=== PATIENT | male | born 1960 | race Caucasian/White ===

== ENCOUNTER 2017-06-17 22:23 | Emergency (ER) | payer BC ==
[~2017-06-17] VITALS: Ht 177.8 cm; Wt 147.7 kg
[2017-06-17] MEDS ORDERED: EZET10TA (22:32)
[2017-06-17] MEDS ORDERED: LISINOPRIL-HCTZ (22:32)
[2017-06-17] MEDS ORDERED: NS 1,000 ML IV ONE (23:00)
[2017-06-17] MEDS ORDERED: OXYMETAZOLINE NASAL SPRAY (AFRIN) ONE (23:00)
[2017-06-17 23:19] LABS: BASO # 0.1 10^3/uL (0.0-0.2); BASO % 0.9 % (0.0-1.0); EOS # 0.3 10^3/uL (0.0-0.50); EOS % 3.2 % (0.0-3.0); IMMATURE GRANULOCYTE % 0.9 % (0-0); LYMPH # 2.7 10^3/uL (1.5-4.5); MEAN CORPUSCULAR HEMOGLOBIN 30.4 pg (27.0-33.0); MEAN CORPUSCULAR HGB CONC 32.7 g/dl (32.0-36.5); MONO # 0.8 10^3/uL (0.0-0.8); MONO % 10.3 % (0.0-5.0); NEUTROPHILS # 4.2 10^3/uL (1.8-7.7); NEUTROPHILS % 51.7 % (36.0-66.0); PLATELET COUNT, AUTOMATED 217 10^3/uL (150-450); WHITE BLOOD COUNT 8.1 10^3/uL (4.0-10.0)
[2017-06-17 23:32] LABS: INR 0.9
[2017-06-17 23:41] LABS: ANION GAP 8 MEQ/L (8-16); BLOOD UREA NITROGEN 20 MG/DL (7-18); CALCIUM LEVEL 8.8 MG/DL (8.5-10.1); CARBON DIOXIDE LEVEL 27 MEQ/L (21-32); CHLORIDE LEVEL 103 MEQ/L (98-107); CREATININE FOR GFR 1.13 MG/DL (0.70-1.30); GLOMERULAR FILTRATION RATE > 60.0 (>56); GLUCOSE, FASTING 156 MG/DL (70-105); POTASSIUM SERUM 3.4 MEQ/L (3.5-5.1); SODIUM LEVEL 138 MEQ/L (136-145)
[2017-06-18 00:52] VITALS: BP 146/78
[2017-06-19] MEDS ORDERED: DOXY100C37 PO (14:06)
[2017-06-19] MEDS ORDERED: SALISOL7 (14:07)
[2017-06-19] MEDS ORDERED: NEOSOIN TOP (14:08)
== END 2017-06-18 00:57 | disposition home or self-care (01) ==
LOC: M ED 22:23
DX: R04.0 Epistaxis (principal); Z87.891 Personal history of nicotine dependence

== ENCOUNTER 2017-06-19 01:29 | Emergency (ER) | payer BC ==
[~2017-06-19] VITALS: Ht 177.8 cm; Wt 148.0 kg
[~2017-06-19 01:29] MED LIST: EZET10TA; LISINOPRIL-HCTZ
[2017-06-19 01:43] VITALS: BP 144/80
[2017-06-19] MEDS ORDERED: SILVER NITRATE APPLICATOR TOP ONE (03:45)
[2017-06-19] MEDS ORDERED: COCAINE 4% TOP SOLN 4 ML VIAL TOP ONE (03:45)
[2017-06-19] MEDS ORDERED: DOXY100C37 PO (14:06)
[2017-06-19] MEDS ORDERED: SALISOL7 (14:07)
[2017-06-19] MEDS ORDERED: NEOSOIN TOP (14:08)
== END 2017-06-19 04:08 | disposition home or self-care (01) ==
LOC: M ED 01:29
DX: R04.0 Epistaxis (principal); I10 Essential (primary) hypertension; Z87.891 Personal history of nicotine dependence; Z88.0 Allergy status to penicillin; Z91.010 Allergy to peanuts

== ENCOUNTER 2017-06-19 10:38 | Emergency (ER) | payer BC ==
[~2017-06-19] VITALS: Ht 177.8 cm; Wt 147.4 kg
[2017-06-19 10:41] VITALS: BP 140/91
[2017-06-19] MEDS ORDERED: EPINEPHrine INJ 1 MG/ML 1ML AMP As Ordered ONE (13:16)
[2017-06-19 13:17] LABS: BASO # 0.1 10^3/uL (0.0-0.2); BASO % 0.9 % (0.0-1.0); EOS # 0.1 10^3/uL (0.0-0.50); IMMATURE GRANULOCYTE % 0.8 % (0-0); LYMPH # 1.5 10^3/uL (1.5-4.5); LYMPH % 16.9 % (24.0-44.0); MEAN CORPUSCULAR HEMOGLOBIN 30.7 pg (27.0-33.0); MEAN CORPUSCULAR HGB CONC 33.5 g/dl (32.0-36.5); MEAN CORPUSCULAR VOLUME 91.5 fl (80.0-96.0); MONO # 0.8 10^3/uL (0.0-0.8); NEUTROPHILS # 6.4 10^3/uL (1.8-7.7); NEUTROPHILS % 71.4 % (36.0-66.0); PLATELET COUNT, AUTOMATED 220 10^3/uL (150-450); RED CELL DISTRIBUTION WIDTH 13.1 % (11.5-14.5)
[2017-06-19] MEDS ORDERED: SILVER NITRATE APPLICATOR As Ordered ONE (13:17)
[2017-06-19 13:33] LABS: ANION GAP 9 MEQ/L (8-16); BLOOD UREA NITROGEN 15 MG/DL (7-18); CALCIUM LEVEL 9.1 MG/DL (8.5-10.1); CARBON DIOXIDE LEVEL 24 MEQ/L (21-32); CHLORIDE LEVEL 106 MEQ/L (98-107); CREATININE FOR GFR 1.02 MG/DL (0.70-1.30); GLOMERULAR FILTRATION RATE > 60.0 (>56); GLUCOSE, FASTING 100 MG/DL (70-105); POTASSIUM SERUM 3.9 MEQ/L (3.5-5.1); SODIUM LEVEL 139 MEQ/L (136-145)
[2017-06-19 13:35] LABS: INR 0.9
[2017-06-19] MEDS ORDERED: DOXY100C37 PO (14:06)
[2017-06-19] MEDS ORDERED: SALISOL7 (14:07)
[2017-06-19] MEDS ORDERED: NEOSOIN TOP (14:08)
[2017-06-19] MEDS ORDERED: EPINEPHrine 1MG/10ML SYRINGE 1.5IN XX STA (14:50)
[2017-06-19] MEDS ORDERED: LIDOCAINE W/EPINEPHRINE 1% 20ML VIAL SC ONE (15:00)
[2017-06-19] MEDS ORDERED: SILVER NITRATE APPLICATOR TOP ONE ×2 (15:00)
[2017-06-19] MEDS ORDERED: EPINEPHrine INJ 1 MG/ML 1ML AMP XX ONE (15:15)
--- NOTE | 2017-06-20 06:41 | ED PDOC ---
Post-Departure Follow-Up Addendum to physical exam dated 06/19/17: ENT: red bleeding from both nares. external ears: no lesions. Oropharynx:patent without lesions or drooling. Lungs: clear without adventitious sounds Cardiovascular: heart normal rate, regular rhythm. No edema. Abdomen: soft, nontender, nondistended Skin: warm, dry. CR <2sec. no tenting, no lesions. Neuro: Alert and oriented x4. Motor and sensory function intact cranial nerves and all 4 extremities. Gait normal. Psych: concerned appropriate to problem, very pleasant Procedures: topical oxymetazoline and lidocaine were applied to both nares via 4x4 sponge and nasal clip placed. Clip was removed after 10 min and bleeding continued from both nates. Patient blew his nose to expel clots and nasal speculum was used to examine nares. Active bleeding noted from R anterior septum. No source bleeding from L. Placement of Merocel nasal tampon was attempted R nare but resistance was encountered and pt. declined reattempt. ENT was calledand agreed to see pt. in ED. Rach Yanez PA-C Jun 20, 2017 06:41
== END 2017-06-19 15:10 | disposition home or self-care (01) ==
LOC: M ED 10:38
DX: R04.0 Epistaxis (principal); R03.0 Elevated blood-pressure reading, without diagnosis of hypertension; E78.5 Hyperlipidemia, unspecified; Z88.0 Allergy status to penicillin; Z91.010 Allergy to peanuts

== ENCOUNTER → 2017-11-24 | Outpatient (CLI) | payer BC | LOC: M SLEEP 19:44 | DX: G47.30 Sleep apnea, unspecified (principal) | CPT/HCPCS: 95810 ==

== ENCOUNTER → 2017-12-28 | Outpatient (CLI) | payer BC | LOC: M SLEEP 19:43 | DX: G47.33 Obstructive sleep apnea (adult) (pediatric) (principal) ==

== ENCOUNTER 2018-03-18 06:53 | Day surgery (SDC) | payer BC ==
[2018-03-18] MEDS ORDERED: LIDOCAINE 2% INJ 100 MG/5 ML SDV (FOR ANES.) As Ordered (07:06)
[2018-03-18] MEDS ORDERED: PROPOFOL 200 MG/20 ML VIAL As Ordered ×2 (07:07→07:58)
[2018-03-18] MEDS ORDERED: NS 1,000 ML IV (07:15)
== END 2018-03-18 08:35 | disposition home or self-care (01) ==
LOC: M OPP 06:53
DX: Z12.11 Encounter for screening for malignant neoplasm of colon (principal); Z86.010 Personal history of colon polyps; K63.5 Polyp of colon; I10 Essential (primary) hypertension; E78.00 Pure hypercholesterolemia, unspecified; N40.0 Benign prostatic hyperplasia without lower urinary tract symptoms; K82.9 Disease of gallbladder, unspecified; Z79.82 Long term (current) use of aspirin; Z79.899 Other long term (current) drug therapy; Z91.018 Allergy to other foods; Z88.0 Allergy status to penicillin; Z87.448 Personal history of other diseases of urinary system; Z80.1 Family history of malignant neoplasm of trachea, bronchus and lung
CPT/HCPCS: 45385

== ENCOUNTER → 2018-04-20 | Outpatient (CLI) | payer BC ==
[2018-04-21 11:25] LABS: PROSTATIC SPECIFIC AG MONITOR 4.29 NG/ML (< 4.0)
== END ==
LOC: M SMT 14:32
DX: N40.1 Benign prostatic hyperplasia with lower urinary tract symptoms (principal)
CPT/HCPCS: 84153

== ENCOUNTER → 2018-11-28 | Outpatient (CLI) | payer BC ==
[~2018-11-28] MED LIST changes: +ASPI81TA26 PO; +DOXY100C37 PO; -EZET10TA; +EZET10TA PO; +FLOM0.4C39 PO; +LISI10TA2 PO; +NEOSOIN2 TOP; +SALISOL7
[2018-11-30 10:14] LABS: PSA TOTAL 3.2 ng/mL (0.0-4.0)
== END ==
LOC: M SMT 08:25
PROVIDERS: ATTEND Nurse Practitioner
DX: N20.0 Calculus of kidney (principal)

== ENCOUNTER → 2019-05-22 | Outpatient (CLI) | payer BC ==
[~2019-05-22] MED LIST changes: -EZET10TA PO; +EZET10TA21 PO; +LISI10TA15 PO; -LISI10TA2 PO
== END ==
LOC: M SMT 11:13
PROVIDERS: ATTEND Nurse Practitioner
DX: N40.1 Benign prostatic hyperplasia with lower urinary tract symptoms (principal)

== ENCOUNTER 2020-08-02 19:08 | Inpatient (IN) | payer BC ==
[~2020-08-02] VITALS: Ht 180.3 cm; Wt 159.6 kg
[2020-08-02] MEDS ORDERED: dexameTHASONE 20MG/5ML VIAL (J1100 PER 1MG) As Ordered ONE (20:17)
[2020-08-02 20:50] LABS: BASO % 0.5 % (0.0-1.0); EOS # 0.1 10^3/uL (0.0-0.5); EOS % 2.1 % (0.0-3.0); HEMATOCRIT 46.5 % (42.0-52.0); LYMPH # 1.9 10^3/uL (1.5-5.0); LYMPH % 32.9 % (24.0-44.0); MEAN CORPUSCULAR HEMOGLOBIN 29.9 pg (27.0-33.0); MEAN CORPUSCULAR HGB CONC 32.3 g/dl (32.0-36.5); MEAN CORPUSCULAR VOLUME 92.6 fl (80.0-96.0); MONO % 17.5 % (0.0-5.0); NEUTROPHILS # 2.7 10^3/uL (1.5-8.5); NEUTROPHILS % 45.8 % (36.0-66.0); PLATELET COUNT, AUTOMATED 185 10^3/uL (150-450); RED BLOOD COUNT 5.02 10^6/uL (4.30-6.10); WHITE BLOOD COUNT 5.8 10^3/uL (4.0-10.0)
[2020-08-02 21:07] LABS: D-DIMER QUANT 705.88 ng/ml (<500)
--- NOTE | 2020-08-02 21:07 | REPVR ---
PROCEDURE INFORMATION: Exam: XR Chest, 1 View Exam date and time: 08/02/2020 7:30 PM Age: 59 years old Clinical indication: Cough; Additional info: Coronavirus workup TECHNIQUE: Imaging protocol: XR of the chest Views: 1 view. COMPARISON: No relevant prior studies available. FINDINGS: Lungs: Minimal right base atelectasis or scar. No focal infiltrates. Pleural space: Unremarkable. No pleural effusion. No pneumothorax. Heart/Mediastinum: The heart is within normal limits considering AP and lordotic projection. Bones/joints: Unremarkable. Soft tissues: There are generous overlying soft tissues. IMPRESSION: 1. Minimal right base atelectasis or scar. 2. Otherwise negative lordotic chest. Electronically signed by: Caleb Chamorro On 08/02/2020 21:08:09 PM
[2020-08-02 21:13] LABS: ALBUMIN 3.5 GM/DL (3.2-5.2); ALT/SGPT 76 U/L (12-78); BILIRUBIN,TOTAL 0.4 MG/DL (0.2-1.0); BLOOD UREA NITROGEN 20 MG/DL (7-18); CALCIUM LEVEL 8.6 MG/DL (8.8-10.2); CARBON DIOXIDE LEVEL 26 MEQ/L (21-32); CHLORIDE LEVEL 101 MEQ/L (98-107); CREATININE FOR GFR 1.35 MG/DL (0.70-1.30); GLOMERULAR FILTRATION RATE 57.4 (>49); GLUCOSE, FASTING 99 MG/DL (70-100); NT-PRO BNP 25 PG/ML (<125); POTASSIUM SERUM 4.3 MEQ/L (3.5-5.1); SODIUM LEVEL 133 MEQ/L (136-145); TOTAL PROTEIN 7.3 GM/DL (6.4-8.2); TROPONIN I < 0.02 NG/ML (< 0.10)
--- NOTE | 2020-08-02 21:24 | HPEPDOC ---
[facility] Medical History & Physical Date of Admission Aug 02, 2020 Date of Service: Aug 02, 2020 Primary Care Physician: A Other Provider Kalpesh LITTLE Attending Physician: ROSALIO CALVERT MD History and Physical TIME OF SERVICE: 855pm CHIEF COMPLAINT: URI symptoms HISTORY OF PRESENT ILLNESS: This 59 yr old male was diagnosed with COVID 19 based on a swab done on Jul 29; today he presented w c/o worsening cough, sore throat, chest congestion and dyspnea with activity. Denies n/v/d. The patient was noted to desat from 95% to 87% while ambulating on room air. REVIEW OF SYSTEMS: see HPI PAST MEDICAL/ SURGICAL HISTORY: Chronic HTN HECTOR 16 cm H2O Class 3 obesity Resection of adenomatous colonic polyp Right knee surgery SOCIAL HISTORY: Former smoker FAMILY HISTORY: n/a ALLERGIES: Please see below. HOME MEDICATIONS: Please see below. PHYSICAL EXAMINATION: Vital Signs Date Time Temp Pulse Resp B/P (MAP) Pulse Ox O2 Delivery O2 Flow Rate FiO2 08/02/20 19:09 97.5 94 20 132/65 (87) 93 Room Air GENERAL APPEARANCE: obese / well developed / NAD HEENT: MMM &P CARDIOVASCULAR: RRR/NMRG/ radial pulses diminished LUNGS: coughing / normal air entry bilaterally / expiratory rhochi ABDOMEN: contour obese / soft & NT on palpation MUSCULOSKELETAL: NCAT / DEVYN x 4 NEUROLOGICAL: speech not dysarthric PSYCHIATRIC: A&Ox 3 /able to understand and follow all commands LABORATORY DATA: 08/02/20 20:08 08/02/20 20:09 08/02/20 20:08: D-Dimer, Quantitative 705.88H, Anion Gap 6L, Glomerular Filtration Rate 57.4, Calcium Level 8.6L, Total Bilirubin 0.4, Aspartate Amino Transf (AST/SGOT) 49H, Alanine Aminotransferase (ALT/SGPT) 76, Alkaline Phosphatase 51, Troponin I < 0.02, LS-Lyo-X-Type Natriuretic Peptide 25, Total Protein 7.3, Albumin 3.5, Albumin/Globulin Ratio 0.9 08/02/20 20:09: Immature Granulocyte % (Auto) 1.2, Neutrophils (%) (Auto) 45.8, Lymphocytes (%) (Auto) 32.9, Monocytes (%) (Auto) 17.5H, Eosinophils (%) (Auto) 2.1, Basophils (%) (Auto) 0.5, Neutrophils # (Auto) 2.7, Lymphocytes # (Auto) 1.9, Monocytes # (Auto) 1.0H, Eosinophils # (Auto) 0.1, Basophils # (Auto) 0.0, Nucleated Red Blood Cells % (auto) 0.0, Lactic Acid Level 1.9 IMAGING: Chest xray IMPRESSION: 1. Minimal right base atelectasis or scar. 2. Otherwise negative lordotic chest. CTA chest IMPRESSION: 1. Trace bilateral pleural effusions with minimal scattered ground-glass infiltrates consistent with pneumonia. 2. Otherwise negative CTA chest. No pulmonary embolism is identified. MICROBIOLOGY: + COVID 19 / Blood cx pending ASSESSMENT: is a 59 yr old w a hx of HTN, HECTOR and class 3 obesity who presented w c/o cough, sore throat, chest congestion and worsening dyspnea after being diagnosed w COVID 19 on Jul 29and will be admitted for management hypoxemia 2/2 COVID and FREDDY. PLAN: 1. Hypoxemia 2/2 COVID-19 His symptoms are mostly URI. He doesnt have GI symptoms Reason for admission: qCSI score = 5 points based on desat to 87% while ambulating Plan: admit to medical floor / contact & air borne precautions / in 12 H f/u repeat plts (if low indicates bad prognosis), CRP (if high indicates bad prognosis), troponins, INR, BMP, fibrinogen, INR, D-dimer, PT, PTT (if patient has DIC indicates bad prognosis), ferritin, LDH, procalcitonin (if elevated will help rule out bacterial PNA), troponins / supplemental O2 up to with target O2 sats between 92-95% / f/u procalcitonin to confirm absence of superimposed bacterial PNA / will not start abx bc there is no documented fever, leukcytosis or elevation in neutrophils / will not start high dose lovenox bc d-dimer is <4000 / will start dexamethasone & renally dosed remdesivir bc of of hypoxemia 2. Acute Renal Failure Cr increased from 1.02 to 1.35 Plan: monitor UOP / IVF / f/u UA w microscopy, renal panel, CK, Ulytes for FENa or FEUrea / renal US / hold Lisinopril and HTCZ 3. Chronic HTN Plan: start amlodipine 5mg daily while Lisinopril/HTCZ are on hold 4.HECTOR Plan: CPAP 16cm H2O 5. Class 3 obesity BMI 49.5 complicates care Since the patients BMI >40 he is a candidate for bariatric surgery Plan: f/u A1C / the patient can f/u w his or her PCP for sleep apnea screening, perfume and toilet water maker consult, to discuss staring Saxenda as an adjunct to exercise which is indicated in patients with a BMI >27 with co-existing DM, HTN or dyslipidemia to help with weight control & referral to a Bariatric Surgeon / recommend cardiovascular exercise for 40 min 4-5 days a week DVT Px w lovenox and ASA Dispo: home after at least 2 midnights stay Home Medications Scheduled Aspirin (Aspirin EC) 81 Mg Tab, 81 MG PO DAILY Ezetimibe (Ezetimibe) 10 Mg Tab, 10 MG PO DAILY Lisinopril/Hydrochlorothiazide (Lisinopril-Hctz 10-12.5 mg Tab) 1 Tab Tab, 1 TAB PO DAILY Tamsulosin HCl (Flomax) 0.4 Mg Cap, 0.4 MG PO DAILY Allergies Coded Allergies: NUTS (Verified Allergy, Severe, ANAPHYLAXIS, 08/02/20) Penicillins (Unverified Allergy, Unknown, 08/02/20) A-FIB/CHADSVASC A-FIB History Current/History of A-Fib/PAF?: No Current PO Anticoag Therapy: No ROSALIO CALVERT MD Aug 02, 2020 21:24
[2020-08-02] MEDS ORDERED: MAALOX 30 ML SUSP *UDC PO PRN (21:30)
[2020-08-02] MEDS ORDERED: MOM 30ML SUSPENSION UDC PO PRN (21:30)
[2020-08-02] MEDS ORDERED: ACETAMINOPHEN TAB 650MG DOSE (2X325MG) PO PRN (21:30)
[2020-08-02] MEDS ORDERED: NS 1,000 ML IV ONE (21:30)
[2020-08-02] MEDS ORDERED: ISOVUE-370 76% 100ML VIAL As Ordered ONE (21:38)
[2020-08-02 22:01] LABS: PHOSPHORUS LEVEL 3.3 MG/DL (2.5-4.9)
--- NOTE | 2020-08-02 22:25 | REPVR ---
PROCEDURE INFORMATION: Exam: CT Angiography Chest With Contrast Exam date and time: 08/02/2020 9:51 PM Age: 59 years old Clinical indication: Abnormal findings; Abnormal diagnostic tests; Elevated d-dimer; Shortness of breath; Additional info: SOB, hypoxia, mildly elev d-dimer TECHNIQUE: Imaging protocol: Computed tomographic angiography of the chest with intravenous contrast. 3D rendering (Not supervised by radiologist): MIP and/or 3D reconstructed images were created by the technologist. Radiation optimization: All CT scans at this facility use at least one of these dose optimization techniques: automated exposure control; mA and/or kV adjustment per patient size (includes targeted exams where dose is matched to clinical indication); or iterative reconstruction. Contrast material: ISOVUE 370; Contrast volume: 100 ml; Contrast route: INTRAVENOUS (IV); COMPARISON: CR PORTABLE CHEST X-RAY 08/02/2020 8:14 PM FINDINGS: Pulmonary arteries: The main pulmonary artery measures 30 mm. No pulmonary embolism is identified. Aorta: The ascending thoracic aorta measures 30 mm. Lungs: Minimal scattered bilateral pulmonary infiltrates with minimal bilateral lower lobe fibro-atelectatic change. Pleural space: Trace bilateral pleural effusions. Heart: Unremarkable. No cardiomegaly. No pericardial effusion. Lymph nodes: Unremarkable. No enlarged lymph nodes. Liver: Probable hepatic cyst in the anterior dome measuring 14 mm with a Hounsfield measurement of 2. Bones/joints: Unremarkable. No acute fracture. Soft tissues: Unremarkable. IMPRESSION: 1. Trace bilateral pleural effusions with minimal scattered ground-glass infiltrates consistent with pneumonia. 2. Otherwise negative CTA chest. No pulmonary embolism is identified. Electronically signed by: Caleb Chamorro On 08/02/2020 22:25:22 PM
[2020-08-02 23:04] LABS: INR 0.93; PROTHROMBIN TIME 12.7 SECONDS (12.5-14.3)
[2020-08-02 23:05] LABS: PARTIAL THROMBOPLASTIN TIME 37.4 SECONDS (24.2-38.5)
[2020-08-02] MEDS ORDERED: SODIUM CHLORIDE 0.9% INJ 10 ML SYR IV ONE (23:30)
[2020-08-02 23:43] VITALS: BP 129/76
[2020-08-02 23:55] LABS: C REACTIVE PROTEIN QUANTITATIV 1.76 MG/DL (0.00-0.30); CK-MB VALUE MASS 2.1 NG/ML (<3.6); CPK CREATINE PHOSPHOKINASE 226 U/L (39-308); FERRITIN 422 NG/ML (26-388); LDH LACTATE DEHYDROGENASE 206 U/L (87-241); MB/CK RELATIVE INDEX 0.93 (< OR =4); TRIGLYCERIDES LEVEL 114 MG/DL (<150)
[2020-08-03] MEDS: ENOXAPARIN 40MG/0.4ML SYRINGE (J1650 PER 10MG) SC SCH ×2 (00:19→21:32)
[2020-08-03] MEDS: NS 1,000 ML IV SCH ×2 (00:20→17:35)
[2020-08-03 04:00] VITALS: BP 110/64
[2020-08-03 07:06] LABS: BASO % 0.3 % (0.0-1.0); HEMATOCRIT 45.6 % (42.0-52.0); HEMOGLOBIN 14.8 g/dl (13.5-17.5); LYMPH # 0.8 10^3/uL (1.5-5.0); LYMPH % 26.5 % (24.0-44.0); MEAN CORPUSCULAR HEMOGLOBIN 30.3 pg (27.0-33.0); MEAN CORPUSCULAR HGB CONC 32.5 g/dl (32.0-36.5); MEAN CORPUSCULAR VOLUME 93.4 fl (80.0-96.0); MONO # 0.2 10^3/uL (0.0-0.8); NEUTROPHILS # 1.9 10^3/uL (1.5-8.5); NEUTROPHILS % 64.5 % (36.0-66.0); PLATELET COUNT, AUTOMATED 167 10^3/uL (150-450); RED BLOOD COUNT 4.88 10^6/uL (4.30-6.10)
[2020-08-03 07:14] LABS: APPEARANCE, URINE CLEAR (CLEAR); BACTERIA, URINE AUTO NEGATIVE (NEGATIVE); BILIRUBIN, URINE AUTO NEGATIVE (NEGATIVE); BLOOD, URINE BLOOD NEGATIVE (NEGATIVE); COLOR, URINE YELLOW (YELLOW); GLUCOSE, URINE (UA) AUTO NEGATIVE (NEGATIVE); KETONE, URINE AUTO NEGATIVE (NEGATIVE); LEUKOCYTE ESTERASE, URINE AUTO NEGATIVE (NEGATIVE); NITRITE, URINE AUTO NEGATIVE (NEGATIVE); PROTEIN, URINE AUTO NEGATIVE (NEGATIVE); RBC, URINE AUTO 1 /HPF (0-3); SPECIFIC GRAVITY URINE AUTO 1.017 (1.002-1.035); SQUAMOUS EPITHELIAL CELL UR AU 0 /HPF (0-6); UROBILINOGEN, URINE AUTO 0.2 mg/dL (0.0-2.0); WBC, URINE AUTO 0 /HPF (0-3)
[2020-08-03 07:21] LABS: INR 0.9; PROTHROMBIN TIME 12.3 SECONDS (12.5-14.3)
[2020-08-03 07:22] LABS: PARTIAL THROMBOPLASTIN TIME 38.3 SECONDS (24.2-38.5)
[2020-08-03 07:24] LABS: HEMOGLOBIN A1c 5.2 %
[2020-08-03 07:25] LABS: D-DIMER QUANT 674.96 ng/ml (<500)
[2020-08-03 07:38] LABS: CREATININE,RANDOM URINE 50.4 MG/DL; TOTAL PROTEIN,RANDOM URINE 7.2 MG/DL (0.0-12.0)
[2020-08-03 07:46] LABS: C REACTIVE PROTEIN QUANTITATIV 1.76 MG/DL (0.00-0.30); FERRITIN 386 NG/ML (26-388); LDH LACTATE DEHYDROGENASE 196 U/L (87-241); NT-PRO BNP 27 PG/ML (<125); TRIGLYCERIDES LEVEL 62 MG/DL (<150); TROPONIN I < 0.02 NG/ML (< 0.10)
[2020-08-03 08:00] VITALS: BP 148/85
--- NOTE | 2020-08-03 08:44 | REP ---
INDICATION: FREDDY COMPARISON: 09/19/2008 TECHNIQUE: Real time cho scale ultrasound examination using curved array transducer. FINDINGS: The kidneys are normal in reniform shape with mildly increased parenchymal echotexture and subtle suggested renovascular calcifications. No hydronephrosis, nephrolithiasis or renal mass lesion appreciated. Right kidney measures 12.0 x 6.0 x 6.2 cm and includes 2.9 x 2.4 x 2.5 cm upper pole cyst. Left kidney measures 12.7 x 5.6 x 7.9 cm. Bladder is under distended but grossly normal in appearance. IMPRESSION: 1. Evidence for chronic medical renal disease without hydronephrosis. 2. A 2.9 cm right renal cyst is identified. <Electronically signed by Riccardo Small > 08/03/20 0805
[2020-08-03] MEDS: EZETIMIBE 10 MG TAB (ZETIA) PO SCH (09:55)
[2020-08-03] MEDS: TAMSULOSIN 0.4 MG CAP PO SCH (09:55)
[2020-08-03] MEDS: ASPIRIN 81 MG ENTERIC TAB PO SCH (09:55)
[2020-08-03] MEDS: dexameTHASONE 4 MG/ML 1ML VIAL (J1100 PER 1MG) IV SCH (09:55)
[2020-08-03] MEDS: amLODIPine 5 MG TAB PO SCH (09:56)
--- NOTE | 2020-08-03 14:43 | IPNPDOC ---
Text Note Date of Service The patient was seen on 08/03/20. NOTE SUBJECTIVE: -No acute events overnight PHYSICAL EXAMINATION: Vital Signs: see below. HDS, on room air GENERAL APPEARANCE: NAD HEENT: MMM, NCAT, EOMI, no injection, anicteric CARDIOVASCULAR: RRR, no mrg LUNGS: Normal air entry bilaterally, however coughing and not speaking in full sentences, has some pauses, no crackles, some diffuse rhonchi, no wheezing ABDOMEN: Obese, normoactive sounds, soft, NTND NEUROLOGICAL: speech not dysarthric, CN3-12 intact, non focal exam PSYCHIATRIC: A&Ox 3 LABORATORY DATA: reviewed ASSESSMENT: 59 yr old w a hx of HTN, HECTOR and class 3 obesity who presented w c/o cough, sore throat, chest congestion and worsening dyspnea after being diagnosed w COVID 19 on Jul 29 and will be admitted for management hypoxemia 2/2 COVID and FREDDY. PLAN: Hypoxemia 2/2 COVID-19 His symptoms are mostly URI. He doesnt have GI symptoms Reason for admission: qCSI score = 5 points based on desat to 87% while ambulating -f/u strict covid panel labs -supplemental O2 to target O2 sats between 92-95% -f/u procalcitonin to confirm absence of superimposed bacterial PNA -will not start abx bc there is no documented fever, leukcytosis or elevation in neutrophils -will not start high dose lovenox bc d-dimer is <4000 -continue dexamethasone & renally dosed remdesivir bc of presentation exertional hypoxemia -tersalon perls BID for cough 2. Acute Renal Failure: Cr increased from 1.02 to 1.35, likely prerenal -s/p IVF -hold Lisinopril and HTCZ -daily BMP 3. Chronic HTN -continue amlodipine 5mg daily while Lisinopril/HTCZ are on hold 4.HECTOR -CPAP 16cm H2O 5. Class 3 obesity BMI 49.5 complicates care Since the patients BMI >40 he is a candidate for bariatric surgery Plan: f/u A1C / the patient can f/u w his or her PCP for sleep apnea screening, personal coach consult, to discuss staring Saxenda as an adjunct to exercise which is indicated in patients with a BMI >27 with co-existing DM, HTN or dyslipidemia to help with weight control & referral to a Bariatric Surgeon / recommend cardiovascular exercise for 40 min 4-5 days a week DVT Px w lovenox and ASA Dispo: home after at least 2 midnights stay VS,Fishbone, I+O VS, Fishbone, I+O Laboratory Tests 08/02/20 20:08 08/02/20 20:09 08/03/20 05:52 Vital Signs Date Time Temp Pulse Resp B/P (MAP) Pulse Ox O2 Delivery O2 Flow Rate FiO2 08/03/20 09:56 91 148/85 08/03/20 08:00 95.4 22 94 Room Air I&O- Last 24 Hours up to 6 AM 08/03/20 06:00 Intake Total 1390 ml Output Total 1200 ml Balance 190 ml VERONICA ANTONY MD Aug 03, 2020 11:16
[2020-08-03] MEDS: BENZONATATE 100 MG CAP PO SCH ×2 (17:35→21:31)
--- NOTE | 2020-08-03 18:16 | ECGEPIP ---
[facility] - ED Test Date: 2020-08-02 Pat Name: ADRIA JOHNSON Department: Room: [place] [address] Gender: Male Claims Sorter: yeison : 1960 Requested By: GIORGIO LITTLE Order Number: [id number] Reading MD: Kelsey Montemayor Measurements Intervals Hasty Rate: 84 P: 51 DC: 171 QRS: 12 QRSD: 97 T: 29 QT: 349 QTc: 413 Interpretive Statements SINUS RHYTHM No prior Electronically Signed on 08-03-2020 18:15:35 EST by Kelsey Montemayor
[2020-08-03 19:54] VITALS: BP 114/58
[2020-08-03] MEDS: SODIUM CHLORIDE 0.9% INJ 10 ML SYR IV SCH (22:38)
[2020-08-04] VITALS: O2SAT 92
[2020-08-04] MEDS: NS 1,000 ML IV SCH (02:56)
[2020-08-04 04:00] VITALS: BP_SYST 109; BP_SYST 120; BP_DIAS 56; BP_DIAS 67; O2SAT 92
[2020-08-04 08:00] VITALS: O2SAT 96
[2020-08-04 08:57] LABS: HEMATOCRIT 43.1 % (42.0-52.0); MEAN CORPUSCULAR HEMOGLOBIN 30.4 pg (27.0-33.0); MEAN CORPUSCULAR HGB CONC 32.5 g/dl (32.0-36.5); MEAN CORPUSCULAR VOLUME 93.7 fl (80.0-96.0); PLATELET COUNT, AUTOMATED 184 10^3/uL (150-450); WHITE BLOOD COUNT 6.4 10^3/uL (4.0-10.0)
[2020-08-04 09:21] LABS: BLOOD UREA NITROGEN 18 MG/DL (7-18); CALCIUM LEVEL 7.9 MG/DL (8.8-10.2); CARBON DIOXIDE LEVEL 23 MEQ/L (21-32); CHLORIDE LEVEL 105 MEQ/L (98-107); CREATININE FOR GFR 0.92 MG/DL (0.70-1.30); GLOMERULAR FILTRATION RATE > 60.0 (>49); GLUCOSE, FASTING 97 MG/DL (70-100); POTASSIUM SERUM 4.3 MEQ/L (3.5-5.1); SODIUM LEVEL 136 MEQ/L (136-145)
[2020-08-04] MEDS: ASPIRIN 81 MG ENTERIC TAB PO SCH (09:57)
[2020-08-04] MEDS: BENZONATATE 100 MG CAP PO SCH ×3 (09:57→22:11)
[2020-08-04] MEDS: TAMSULOSIN 0.4 MG CAP PO SCH (09:57)
[2020-08-04] MEDS: EZETIMIBE 10 MG TAB (ZETIA) PO SCH (09:57)
[2020-08-04] MEDS: dexameTHASONE 4 MG/ML 1ML VIAL (J1100 PER 1MG) IV SCH (09:58)
[2020-08-04] MEDS: amLODIPine 5 MG TAB PO SCH (09:59)
[2020-08-04 12:00] VITALS: BP 126/70; O2SAT 95
--- NOTE | 2020-08-04 15:55 | IPNPDOC ---
Text Note Date of Service The patient was seen on 08/04/20. NOTE SUBJECTIVE: -No acute events overnight PHYSICAL EXAMINATION: Vital Signs: see below. HDS, on room air GENERAL APPEARANCE: NAD HEENT: MMM, NCAT, EOMI, no injection, anicteric CARDIOVASCULAR: RRR, no mrg LUNGS: Normal air entry bilaterally ABDOMEN: Obese, normoactive sounds, soft, NTND NEUROLOGICAL: speech not dysarthric, CN3-12 intact, non focal exam PSYCHIATRIC: A&Ox 3 LABORATORY DATA: reviewed ASSESSMENT: 59 yr old w a hx of HTN, HECTOR and class 3 obesity who presented w c/o cough, sore throat, chest congestion and worsening dyspnea after being diagnosed w COVID 19 on Jul 29 and will be admitted for management hypoxemia 2/2 COVID and FREDDY. PLAN: Hypoxemia 2/2 COVID-19 His symptoms are mostly URI. He doesnt have GI symptoms Reason for admission: qCSI score = 5 points based on desat to 87% while ambulating -f/u strict covid panel labs -supplemental O2 to target O2 sats between 92-95% -f/u procalcitonin to confirm absence of superimposed bacterial PNA -will not start abx bc there is no documented fever, leukocytosis or elevation in neutrophils -will not start high dose lovenox bc d-dimer is <4000 -continue dexamethasone & renally dosed remdesivir bc of presentation exertional hypoxemia, day 2 -tersalon perls BID for cough 2. Acute Renal Failure: Cr increased from 1.02 to 1.35, likely prerenal, resolved. -s/p IVF -hold Lisinopril and HTCZ -daily BMP 3. Chronic HTN -continue amlodipine 5mg daily while Lisinopril/HTCZ are on hold 4.HECTOR -CPAP 16cm H2O 5. Class 3 obesity BMI 49.5 complicates care Since the patients BMI >40 he is a candidate for bariatric surgery Plan: f/u A1C / the patient can f/u w his or her PCP for sleep apnea screening, drill foreman consult, to discuss staring Saxenda as an adjunct to exercise which is indicated in patients with a BMI >27 with co-existing DM, HTN or dyslipidemia to help with weight control & referral to a Bariatric Surgeon / recommend cardiovascular exercise for 40 min 4-5 days a week DVT Px w lovenox and ASA Dispo: home after at least 2 midnights stay VS,Fishbone, I+O VS, Fishbone, I+O Laboratory Tests 08/04/20 08:27 Vital Signs Date Time Temp Pulse Resp B/P (MAP) Pulse Ox O2 Delivery O2 Flow Rate FiO2 08/04/20 12:00 97.6 64 18 126/70 (88) 95 Room Air I&O- Last 24 Hours up to 6 AM 08/04/20 06:00 Intake Total 2510 ml Output Total 875 ml Balance 1635 ml VERONICA ANTONY MD Aug 04, 2020 15:54
[2020-08-04 16:00] VITALS: O2SAT 94
[2020-08-04 20:00] VITALS: BP 138/88
[2020-08-04] MEDS: ENOXAPARIN 40MG/0.4ML SYRINGE (J1650 PER 10MG) SC SCH (22:12)
[2020-08-04] MEDS: SODIUM CHLORIDE 0.9% INJ 10 ML SYR IV SCH (22:30)
[2020-08-05 04:00] VITALS: BP 121/63; O2SAT 94
[2020-08-05 07:52] LABS: BASO % 0.1 % (0.0-1.0); LYMPH # 1.5 10^3/uL (1.5-5.0); LYMPH % 21.9 % (24.0-44.0); MEAN CORPUSCULAR HEMOGLOBIN 30.4 pg (27.0-33.0); MEAN CORPUSCULAR HGB CONC 32.6 g/dl (32.0-36.5); MEAN CORPUSCULAR VOLUME 93.3 fl (80.0-96.0); MONO # 0.7 10^3/uL (0.0-0.8); NEUTROPHILS # 4.6 10^3/uL (1.5-8.5); PLATELET COUNT, AUTOMATED 177 10^3/uL (150-450); RED BLOOD COUNT 4.61 10^6/uL (4.30-6.10); WHITE BLOOD COUNT 6.9 10^3/uL (4.0-10.0)
[2020-08-05 08:11] LABS: INR 1.05; PROTHROMBIN TIME 13.9 SECONDS (12.5-14.3)
[2020-08-05 08:12] LABS: PARTIAL THROMBOPLASTIN TIME 34.3 SECONDS (24.2-38.5)
[2020-08-05 08:20] LABS: ALBUMIN 3.3 GM/DL (3.2-5.2); ALT/SGPT 68 U/L (12-78); BILIRUBIN,DIRECT 0.2 MG/DL (0.0-0.2); BILIRUBIN,TOTAL 0.4 MG/DL (0.2-1.0); BLOOD UREA NITROGEN 18 MG/DL (7-18); CALCIUM LEVEL 8.4 MG/DL (8.8-10.2); CARBON DIOXIDE LEVEL 27 MEQ/L (21-32); CHLORIDE LEVEL 105 MEQ/L (98-107); CREATININE FOR GFR 1.04 MG/DL (0.70-1.30); FERRITIN 347 NG/ML (26-388); GLOMERULAR FILTRATION RATE > 60.0 (>49); GLUCOSE, FASTING 87 MG/DL (70-100); MAGNESIUM LEVEL 2.3 MG/DL (1.8-2.4); NT-PRO BNP 218 PG/ML (<125); POTASSIUM SERUM 4.1 MEQ/L (3.5-5.1); SODIUM LEVEL 138 MEQ/L (136-145); TOTAL PROTEIN 6.6 GM/DL (6.4-8.2); TROPONIN I < 0.02 NG/ML (< 0.10)
[2020-08-05] MEDS ORDERED: PREVNAR 13 VACCINE SYRINGE IM ONE (09:00)
[2020-08-05] MEDS ORDERED: FLUBLOK(EGG FREE)(QUAD)INFLUENZA VACC 0.5ML SYRINGE 18YRS & OLDER IM ONE (09:00)
[2020-08-05] MEDS: dexameTHASONE 4 MG/ML 1ML VIAL (J1100 PER 1MG) IV SCH (09:47)
[2020-08-05] MEDS: ASPIRIN 81 MG ENTERIC TAB PO SCH (09:47)
[2020-08-05] MEDS: EZETIMIBE 10 MG TAB (ZETIA) PO SCH (09:47)
[2020-08-05] MEDS: BENZONATATE 100 MG CAP PO SCH (09:48)
[2020-08-05] MEDS: TAMSULOSIN 0.4 MG CAP PO SCH (09:48)
[2020-08-05 09:52] VITALS: BP 112/63
[2020-08-05] MEDS: amLODIPine 5 MG TAB PO SCH (09:52)
[2020-08-05 09:59] VITALS: BP 112/63
[2020-08-05 10:27] LABS: HEPATITIS B SURFACE ANTIGEN NEGATIVE (NEGATIVE)
[2020-08-05 10:54] LABS: HIV 1&2 SCREEN CENTAUR NEGATIVE (NEGATIVE)
[2020-08-05] MEDS ORDERED: DEXA6TAB PO (12:07)
[2020-08-05] MEDS ORDERED: DOXY-350 PO (12:07)
--- NOTE | 2020-08-05 20:07 | DS.PDOC ---
Discharge Summary General Date of Admission Aug 02, 2020 at 21:25 Date of Discharge Wednesday, August 05, 2020 Attending Physician: SAMREEN CATES MD Discharge Summary PROCEDURES PERFORMED DURING STAY: None ADMITTING DIAGNOSES: Hypoxemia secondary to COVID-19 pneumonia Acute renal failure Chronic hypertension Obstructive sleep apnea Class III obesity Former smoker DISCHARGE DIAGNOSIS: COVID-19 pneumonia Acute renal failure of prerenal origin, resolved Chronic hypertension Obstructive sleep apnea Class III obesity Former smoker COMPLICATIONS/CHIEF COMPLAINT: Covid 19. HISTORY OF PRESENT ILLNESS: Kalpesh is a 59yo male with notable past medical history of obstructive sleep apnea on home CPAP, chronic hypertension, class III obesity, who presented to the emergency department on the evening of 08/02/2020 after being diagnosed with the Covid 19 virus via a swab done on July 29 and experiencing sore throat, chest congestion, worsening cough, and dyspnea on exertion. In the emergency department. He denied any associated nausea, vomiting or diarrhea. During the emergency department examination, he was noted to have desaturations and his oxygen from 95-87% while ambulating on room air. He was subsequently admitted under the care of the hospitalist service for primary observation, monitoring of his respiratory/oxygenation status in the setting of hypoxemia from Covid 19 infection. HOSPITAL COURSE: After admission, it was deemed that his symptoms were more of an upper respiratory infection origin and not associated with GI symptoms. Based on the fact that he desaturated to 87% oxygen while ambulating in the setting of a positive Covid 19, diagnosis, he was admitted to the floor with contact and airborne precautions with 12 hour repeat follow-up labs for platelets, CRP, troponins, coagulation studies, BMP, fibrinogen, and d-dimer. Supplemental oxygen was afforded to him with a target oxygen titration of 92-95%. Lovenox weight based/high dosing was deferred due to the fact his d-dimer was under 4000. He was started on dexamethasone and renally dose return to severe because of the hypoxemia. In addition, he was found to have acute renal failure upon presentation with a creatinine of 1.35 in the setting of a baseline around 1 (FREDDY is defined as at l east a 0.3 increase in sCr from baseline). He was given IV fluids with monitoring of his urine output and follow-up renal panel to monitor kidney function was ordered as well as urine electrolytes to calculate the fractional excretion of sodium and urea. A renal ultrasound was also ordered in his home lisinopril, hydrochlorothiazide was held in the setting of the FREDDY. He was placed on Lovenox for DVT prophylaxis. On 08/05, roughly 2.5 days after his admission, he was doing very well from respiratory standpoint with saturations of 93-94% on room air. He was no longer tachypneic and was not using accessory muscles to breathe nor desaturated on a 6 minute walk test. There was also a resolution of his acute renal failure as his creatinine came back down to baseline after receiving the IV fluids and holding his home blood pressure and diuretic medications. Upon completion of the successful. 6 minute walk test without significant hypoxemia and a benign exam, he was subsequently discharged home on 08/05/20 and given a 2 mg daily, oral dexamethasone prescription for 4 more days as well as a 5 day prescription for doxycycline to cover for any superimposed infections. DISCHARGE MEDICATIONS: Please see below. ALLERGIES: Please see below. PHYSICAL EXAMINATION ON DISCHARGE: VITAL SIGNS: Please see below. GENERAL APPEARANCE: NAD HEENT: MMM, NCAT, EOMI, no injection, anicteric CARDIOVASCULAR: RRR, no mrg LUNGS: Clear to auscultation bilaterally with no adventitious breath sounds appreciated. Normal air entry bilaterally with symmetric chest expansion. No accessory muscle use. Speaking full sentences. ABDOMEN: Obese, normoactive sounds, soft, NTND NEUROLOGICAL: speech not dysarthric, CN3-12 intact, non focal exam PSYCHIATRIC: A&Ox 3 LABORATORY DATA: Please see below. IMAGING: Chest xray, 08/02/2020 IMPRESSION: 1. Minimal right base atelectasis or scar. 2. Otherwise negative lordotic chest. CTA chest, 08/02/2020 IMPRESSION: 1. Trace bilateral pleural effusions with minimal scattered ground- glass infiltrates consistent with pneumonia. 2. Otherwise negative CTA chest. No pulmonary embolism is identified. Renal Ultrasound, 08/02/2020 IMPRESSION: 1. Evidence for chronic medical renal disease without hydronephrosis. 2. A 2.9 cm right renal cyst is identified. PROGNOSIS: Good ACTIVITY: As tolerated DIET: 2 g sodium/sodium restricted diet DISPOSITION: 01 Home, Self-Care. DISCHARGE INSTRUCTIONS & ITEMS TO FOLLOWUP ON ON OUTPATIENT: -Follow-up with your primary care physician within 7 days -Take 2 mg Dexamethasone daily for the next 4 days -Take 100 mg Doxycycline every 12 hours/two times per day for 5 days to cover for risk of superimposed infection -Return to ED/seek immediate medical care should presenting symptoms return and/or worsen DISCHARGE CONDITION: Stable TIME SPENT ON DISCHARGE: 37 minutes Vital Signs/I&Os Vital Signs Date Time Temp Pulse Resp B/P (MAP) Pulse Ox O2 Delivery O2 Flow Rate FiO2 08/05/20 09:59 97.5 64 18 112/63 (79) 93 Room Air I&O- Last 24 Hours up to 6 AM 08/05/20 06:00 Intake Total 1410 ml Output Total 1435 ml Balance -25 ml Laboratory Data Labs 24H Laboratory Tests 2 08/05/20 07:24: Immature Granulocyte % (Auto) 1.0, Neutrophils (%) (Auto) 67.0H, Lymphocytes (%) (Auto) 21.9L, Monocytes (%) (Auto) 10.0H, Eosinophils (%) (Auto) 0.0, Basophils (%) (Auto) 0.1, Neutrophils # (Auto) 4.6, Lymphocytes # (Auto) 1.5, Monocytes # (Auto) 0.7, Eosinophils # (Auto) 0.0, Basophils # (Auto) 0.0, Nucleated Red Blood Cells % (auto) 0.0, Prothrombin Time 13.9, Prothromb Time International Ratio 1.05, Activated Partial Thromboplast Time 34.3, Fibrinogen 348, Anion Gap 6L, Glomerular Filtration Rate > 60.0, Calcium Level 8.4L, Magnesium Level 2.3, Ferritin 347, Total Bilirubin 0.4, Direct Bilirubin 0.2, Aspartate Amino Transf (AST/SGOT) 42H, Alanine Aminotransferase (ALT/SGPT) 68, Alkaline Phosphatase 38L, Troponin I < 0.02, CR-Rxk-L-Type Natriuretic Peptide 218H, Total Protein 6.6, Albumin 3.3, Albumin/Globulin Ratio 1.0, Procalcitonin <0.05 CBC/BMP Laboratory Tests 08/05/20 07:24 Microbiology Microbiology 08/02/20 Blood Culture - Preliminary, Resulted No Growth after 48 hours. All Specime... 08/02/20 Blood Culture - Preliminary, Resulted No Growth after 48 hours. All Specime... 08/02/20 Respiratory Virus Panel (PCR) (PATRICIA) - Final, Complete Discharge Medications Scheduled Aspirin (Aspirin EC) 81 Mg Tab, 81 MG PO DAILY, (Reported) Dexamethasone (Dexamethasone) 6 Mg Tablet, 6 MG PO DAILY Doxycycline Monohydrate (Doxycycline) 100 Mg Capsule, 100 MG PO BID Ezetimibe (Ezetimibe) 10 Mg Tab, 10 MG PO DAILY, (Reported) Lisinopril/Hydrochlorothiazide (Lisinopril-Hctz 10-12.5 mg Tab) 1 Tab Tab, 1 TAB PO DAILY, (Reported) Tamsulosin HCl (Flomax) 0.4 Mg Cap, 0.4 MG PO DAILY, (Reported) Allergies Coded Allergies: NUTS (Verified Allergy, Severe, ANAPHYLAXIS, 08/02/20) Penicillins (Unverified Allergy, Unknown, 08/02/20) AMPARO RAMÍREZ D.O. Aug 05, 2020 20:07
== END 2020-08-05 15:30 | disposition home or self-care (01) | DRG 137 ==
LOC: M ED 19:08 → M ED INP 21:25 → ENRESERV 22:04 → M 4MAIN 08-03
PROVIDERS: ADMIT Internal Medicine; ATTEND Internal Medicine
DX: U07.1 COVID-19 (principal); Z68.42 Body mass index [BMI] 45.0-49.9, adult; I10 Essential (primary) hypertension; R09.02 Hypoxemia; E66.9 Obesity, unspecified; G47.33 Obstructive sleep apnea (adult) (pediatric); Z87.891 Personal history of nicotine dependence; Z79.899 Other long term (current) drug therapy; Z79.82 Long term (current) use of aspirin; Z88.0 Allergy status to penicillin; Z91.010 Allergy to peanuts

== ENCOUNTER → 2020-08-22 | Outpatient (CLI) | payer BC ==
[~2020-08-22] MED LIST changes: +DEXA6TAB PO; +DOXY-350 PO
--- NOTE | 2020-08-22 15:55 | REP ---
INDICATION: LOBAR PNEUMONIA COMPARISON: 08/02/2020 TECHNIQUE: PA and lateral. FINDINGS: The mediastinum and cardiac silhouette are normal. Lung cartwright demonstrate chronic interstitial changes. Superimposed opacity in the left base/lingula suggests infiltrate. No effusion. No pneumothorax. IMPRESSION: Left lower lobe/lingular infiltrate possible pneumonia. Follow-up to resolution. <Electronically signed by Riccardo Small > 08/22/20 0201
== END ==
LOC: M WUC 14:46
PROVIDERS: ATTEND Physician Assistant
DX: J18.1 Lobar pneumonia, unspecified organism (principal)

== ENCOUNTER → 2020-11-06 | Outpatient (CLI) | payer BC | LOC: M LABSMTC 14:15 | PROVIDERS: ATTEND Internal Medicine Cardiovascular Disease | DX: Z01.812 Encounter for preprocedural laboratory examination (principal); Z20.822 Contact with and (suspected) exposure to COVID-19 ==

== ENCOUNTER → 2021-01-01 | Outpatient (CLI) | payer BC ==
--- NOTE | 2021-01-01 10:03 | REPVR ---
PROCEDURE INFORMATION: Exam: CT Chest Without Contrast; Diagnostic Exam date and time: 01/01/2021 9:08 AM Age: 60 years old Clinical indication: Abnormal findings; Additional info: Other non specific abnormal finding of lung field TECHNIQUE: Imaging protocol: Diagnostic computed tomography of the chest without contrast. 3D rendering (Not supervised by radiologist): MIP and/or 3D reconstructed images were created by the technologist. Radiation optimization: All CT scans at this facility use at least one of these dose optimization techniques: automated exposure control; mA and/or kV adjustment per patient size (includes targeted exams where dose is matched to clinical indication); or iterative reconstruction. COMPARISON: CT ANGIO CHEST 08/02/2020 9:42 PM FINDINGS: Lungs: Centrilobular and paraseptal emphysema. Atelectasis or scarring in the right middle lobe and lingula. Bilateral dependent atelectasis. Pleural spaces: Unremarkable. No pneumothorax. No pleural effusion. Heart: Atherosclerotic coronary arteries. Aorta: Mild atherosclerotic disease thoracic aorta. Lymph nodes: Unremarkable. No enlarged lymph nodes. Liver: Hepatomegaly and steatosis. Several simple small liver cysts. Gallbladder and bile ducts: Status post cholecystectomy. Kidneys and ureters: Nonobstructive bilateral nephrolithiasis. Simple right renal cyst. 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 Soft tissues: Unremarkable. IMPRESSION: Centrilobular and paraseptal emphysema. Atelectasis or scarring in the right middle lobe and lingula. COMMENTS: Consistent with the [employer] [place]'s Incidental Findings Committee white paper (J Am Doe Radiol 2018): Any incidental renal lesion less than 1 cm or classified as too small to characterize, or any incidental cystic renal lesion characterized as simple-appearing, is likely benign. No follow-up imaging is recommended for these lesions per consensus recommendations based on imaging criteria. Electronically signed by: Damon Pierce On 01/01/2021 10:02:53 AM
== END ==
LOC: M RAD 08:56
PROVIDERS: ATTEND Internal Medicine Pulmonary Disease
DX: R91.8 Other nonspecific abnormal finding of lung field (principal)

== ENCOUNTER → 2021-08-04 | Outpatient (CLI) | payer BC ==
[~2021-08-04] MED LIST changes: +DOXY-443 PO; -DOXY100C37 PO; -LISI10TA15 PO; +LISI10TA24 PO
== END ==
LOC: M PLAIMG 09:05
PROVIDERS: ATTEND Internal Medicine Pulmonary Disease
DX: R91.8 Other nonspecific abnormal finding of lung field (principal)

== ENCOUNTER → 2022-01-08 | Outpatient (CLI) | payer BC | LOC: M RAD 16:18 | PROVIDERS: ATTEND Physician Assistant Medical | DX: J32.9 Chronic sinusitis, unspecified (principal) ==

== ENCOUNTER → 2022-04-14 | Outpatient (CLI) | payer BC ==
[2022-04-14 10:26] LABS: COLOR, URINE MANUAL YELLOW (YELLOW)
[2022-04-14 10:27] LABS: APPEARANCE, URINE MANUAL HAZY (CLEAR); GLUCOSE, URINE (UA) MANUAL NEGATIVE (NEGATIVE); KETONE, URINE MANUAL NEGATIVE (NEGATIVE); PROTEIN, URINE MANUAL NEGATIVE (NEGATIVE); SPECIFIC GRAVITY,URINE MANUAL 1.015 (1.002-1.035); UROBILINOGEN, URINE MANUAL NORMAL (NORMAL)
[2022-04-14 10:28] LABS: BILIRUBIN, URINE MANUAL NEGATIVE (NEGATIVE); LEUKOCYTE ESTERASE, URINE MAN POSITIVE (NEGATIVE); NITRITE, URINE MANUAL NEGATIVE (NEGATIVE)
[2022-04-14 10:29] LABS: BLOOD URINE MANUAL POSITIVE (NEGATIVE)
[2022-04-14 10:35] LABS: BASO # 0.1 10^3/uL (0.0-0.2); BASO % 1.1 % (0.0-1.0); EOS # 0.3 10^3/uL (0.0-0.5); EOS % 3.5 % (0.0-3.0); LYMPH # 2.6 10^3/uL (1.5-5.0); LYMPH % 29.9 % (24.0-44.0); MEAN CORPUSCULAR HEMOGLOBIN 30.1 pg (27.0-33.0); MEAN CORPUSCULAR HGB CONC 31.9 g/dl (32.0-36.5); MEAN CORPUSCULAR VOLUME 94.2 fl (80.0-96.0); MONO # 0.8 10^3/uL (0.0-0.8); MONO % 9.5 % (2.0-8.0); NEUTROPHILS # 4.7 10^3/uL (1.5-8.5); NEUTROPHILS % 54.8 % (36.0-66.0); PLATELET COUNT, AUTOMATED 226 10^3/uL (150-450); RED BLOOD COUNT 4.99 10^6/uL (4.30-6.10); WHITE BLOOD COUNT 8.5 10^3/uL (4.0-10.0)
[2022-04-14 10:44] LABS: BACTERIA, URINE SMALL AMOUNT; HYALINE CAST, URINE NONE SEEN /lpf (0-1); MUCUS, URINE LARGE AMOUNT (NEGATIVE); SQUAMOUS EPITHELIAL CELL URINE SMALL AMOUNT /hpf (SMALL AMT); TRANSITIONAL EPI CELLS, URINE SMALL AMOUNT /hpf
[2022-04-14 10:47] LABS: INR 0.97; PROTHROMBIN TIME 13.3 SECONDS (12.7-14.5)
[2022-04-14 10:48] LABS: PARTIAL THROMBOPLASTIN TIME 34.4 SECONDS (25.9-37.0)
[2022-04-14 11:23] LABS: ALBUMIN 3.8 GM/DL (3.2-5.2); ALT/SGPT 35 U/L (12-78); BILIRUBIN,TOTAL 0.6 MG/DL (0.2-1.0); BLOOD UREA NITROGEN 16 MG/DL (7-18); CALCIUM LEVEL 9.3 MG/DL (8.8-10.2); CARBON DIOXIDE LEVEL 27 MEQ/L (21-32); CHLORIDE LEVEL 106 MEQ/L (98-107); CREATININE FOR GFR 0.96 MG/DL (0.70-1.30); GLOMERULAR FILTRATION RATE > 60.0 (>49); GLUCOSE, FASTING 92 MG/DL (70-100); POTASSIUM SERUM 4.2 MEQ/L (3.5-5.1); SODIUM LEVEL 138 MEQ/L (136-145); TOTAL PROTEIN 7.2 GM/DL (6.4-8.2)
== END ==
LOC: M WUC 08:26
PROVIDERS: ATTEND Urology
DX: R97.20 Elevated prostate specific antigen [PSA] (principal)

== ENCOUNTER → 2022-08-11 | Outpatient (CLI) | payer BC ==
[~2022-08-11] MED LIST changes: -DOXY-350 PO; +DOXY-444 PO
[2022-08-11 17:15] LABS: CHOLESTEROL RISK RATIO 3.64 (<5); HDL CHOLESTEROL 53.8 MG/DL (>40); LDL CHOLESTEROL 109.8 MG/DL (<100)
== END ==
LOC: M WUC 13:25
PROVIDERS: ATTEND Physician Assistant
DX: E78.5 Hyperlipidemia, unspecified (principal)

== ENCOUNTER → 2022-08-19 | Outpatient (CLI) | payer BC | LOC: M PLAIMG 08:04 | PROVIDERS: ATTEND Internal Medicine Pulmonary Disease | DX: R91.8 Other nonspecific abnormal finding of lung field (principal); J43.9 Emphysema, unspecified; I31.39 Other pericardial effusion (noninflammatory); K76.89 Other specified diseases of liver; K76.0 Fatty (change of) liver, not elsewhere classified; N20.0 Calculus of kidney; M43.04 Spondylolysis, thoracic region ==

== ENCOUNTER → 2022-09-25 | Outpatient (CLI) | payer BC | LOC: M WUC 15:45 | PROVIDERS: ATTEND Nurse Practitioner Family | DX: M25.712 Osteophyte, left shoulder (principal) ==

== ENCOUNTER → 2022-10-30 | Outpatient (REF) | payer BC | LOC: M LABWUC 12:06 | PROVIDERS: ATTEND Urology | DX: R97.20 Elevated prostate specific antigen [PSA] (principal) ==

== ENCOUNTER → 2023-06-01 | Outpatient (CLI) | payer BC | LOC: M PLAIMG 08:56 | PROVIDERS: ATTEND Physician Assistant Medical | DX: N20.1 Calculus of ureter (principal) ==

== ENCOUNTER → 2023-08-20 | Outpatient (CLI) | payer BC, OTHER | LOC: M RAD 07:58 | PROVIDERS: ATTEND Urology | DX: N13.2 Hydronephrosis with renal and ureteral calculous obstruction (principal); N28.1 Cyst of kidney, acquired; N40.0 Benign prostatic hyperplasia without lower urinary tract symptoms ==

== ENCOUNTER → 2023-09-15 | Outpatient (CLI) | payer OTHER | LOC: M RAD 14:09 | PROVIDERS: ATTEND Urology | DX: N13.2 Hydronephrosis with renal and ureteral calculous obstruction (principal) ==

== ENCOUNTER → 2023-09-27 | Outpatient (CLI) | payer OTHER | LOC: M RAD 07:27 | PROVIDERS: ATTEND Internal Medicine Pulmonary Disease | DX: Z12.2 Encounter for screening for malignant neoplasm of respiratory organs (principal); Z87.891 Personal history of nicotine dependence ==

== ENCOUNTER 2023-11-02 07:49 | Day surgery (SDC) | payer OTHER ==
[~2023-11-02] VITALS: Ht 177.8 cm; Wt 147.5 kg
[~2023-11-02 07:49] MED LIST changes: +FURO40TA2 PO; +LIDOCAINE 2% 100MG/5ML SDV (FOR ANES.) As Ordered ONE; +OMEG10002 PO; +PROBCAP2 PO; +VITA100093 PO; +propofoL 200 MG/20 ML VIAL As Ordered ONE
[2023-11-02] MEDS: NS 1,000 ML IV ONE (08:14)
[2023-11-02 09:55] VITALS: BP 110/66; TEMP 98; O2SAT 95
== END 2023-11-02 09:58 | disposition home or self-care (01) ==
LOC: M OPP 07:49
PROVIDERS: ATTEND Internal Medicine Gastroenterology
DX: Z12.11 Encounter for screening for malignant neoplasm of colon (principal); Z86.010 Personal history of colon polyps; D12.0 Benign neoplasm of cecum; D12.2 Benign neoplasm of ascending colon; K63.5 Polyp of colon; K64.8 Other hemorrhoids; K57.30 Diverticulosis of large intestine without perforation or abscess without bleeding; G47.33 Obstructive sleep apnea (adult) (pediatric); Z99.89 Dependence on other enabling machines and devices; Z79.82 Long term (current) use of aspirin; Z79.899 Other long term (current) drug therapy; Z99.81 Dependence on supplemental oxygen; Z88.0 Allergy status to penicillin; Z91.018 Allergy to other foods

== ENCOUNTER → 2024-05-04 | Outpatient (CLI) | payer OTHER ==
[~2024-05-04] MED LIST changes: +DOXY-323 PO; +DOXY-440 PO; -DOXY-443 PO; -DOXY-444 PO; -LIDOCAINE 2% 100MG/5ML SDV (FOR ANES.) As Ordered ONE; -propofoL 200 MG/20 ML VIAL As Ordered ONE
== END ==
LOC: M WUC 09:13
PROVIDERS: ATTEND Physician Assistant
DX: R05.3 Chronic cough (principal); R06.02 Shortness of breath; R06.2 Wheezing

== ENCOUNTER → 2024-08-08 | Outpatient (CLI) | payer OTHER ==
[~2024-08-08] MED LIST changes: -DOXY-323 PO; +DOXY-441 PO
== END ==
LOC: M PLAIMG 08:52
PROVIDERS: ATTEND Internal Medicine Pulmonary Disease
DX: J01.90 Acute sinusitis, unspecified (principal); J34.2 Deviated nasal septum

== ENCOUNTER → 2024-10-03 | Outpatient (CLI) | payer BC, MEDICARE, OTHER | LOC: M RAD 12:36 | PROVIDERS: ATTEND Urology | DX: N13.2 Hydronephrosis with renal and ureteral calculous obstruction (principal); N28.1 Cyst of kidney, acquired ==

== ENCOUNTER 2024-10-23 09:02 | Observation (INO) | payer MEDICARE ==
[~2024-10-23] VITALS: Ht 175.3 cm; Wt 149.9 kg
[2024-10-23 11:02] LABS: VENOUS BASE EXCESS -1.3 (-2.0-2.0); VENOUS HCO3 22.1 MMOL/L (23.0-27.0); VENOUS O2 SATURATION 96.6 % (60.0-80.0); VENOUS PARTIAL PRESSURE CO2 33.9 mmHg (38.0-50.0); VENOUS PARTIAL PRESSURE O2 84.9 mmHg (30.0-50.0); VENOUS PH 7.433 UNITS (7.330-7.430); VENOUS STANDARD HCO3 23.4 MMOL/L; VENOUS TOTAL CO2 23.2 MMOL/L (24.0-28.0)
[2024-10-23] MEDS: methylPREDNISolone 125MG 2ML VIAL IV ONE (11:04)
[2024-10-23 11:06] LABS: BASO # 0.1 10^3/uL (0.0-0.2); BASO % 0.8 % (0.0-1.0); EOS # 0.1 10^3/uL (0.0-0.5); EOS % 1.5 % (0.0-3.0); HEMATOCRIT 45.9 % (42.0-52.0); HEMOGLOBIN 15.4 g/dl (13.5-17.5); LYMPH # 1.9 10^3/uL (1.5-5.0); LYMPH % 26.3 % (24.0-44.0); MEAN CORPUSCULAR HEMOGLOBIN 31.4 pg (27.0-33.0); MEAN CORPUSCULAR HGB CONC 33.6 g/dl (32.0-36.5); MEAN CORPUSCULAR VOLUME 93.7 fl (80.0-96.0); MONO # 1.1 10^3/uL (0.0-0.8); NEUTROPHILS % 55.4 % (36.0-66.0); PLATELET COUNT, AUTOMATED 202 10^3/uL (150-450); WHITE BLOOD COUNT 7.2 10^3/uL (4.0-10.0)
[2024-10-23] MEDS: IPRATROPIUM 0.5MG/ALBUTEROL 2.5MG INH SOL UD 3ML (DUONEB) NEB ONE (11:10)
[2024-10-23] MEDS: ALBUTEROL SULFATE 2.5MG/0.5ML INH NEB SOLN INH ONE (11:10)
[2024-10-23 11:19] LABS: INR 0.94; PARTIAL THROMBOPLASTIN TIME 32.6 SECONDS (24.8-34.2); PROTHROMBIN TIME 12.9 SECONDS (12.5-14.5)
[2024-10-23 11:30] LABS: CK-MB VALUE MASS < 1.0 NG/ML (<3.6)
[2024-10-23 11:32] LABS: LIPASE 22 U/L (12-53)
[2024-10-23 11:33] LABS: CPK CREATINE PHOSPHOKINASE 191 U/L (46-171); MB/CK RELATIVE INDEX 0.52 (< OR =4)
[2024-10-23 11:34] LABS: ALBUMIN 3.9 G/DL (3.2-5.2); ALKALINE PHOSPHATASE 51 U/L (40-129); ALT/SGPT 98 U/L (7.0-40); AST/SGOT 70 U/L (<34); BILIRUBIN,DIRECT 0.2 MG/DL (<0.4); BILIRUBIN,TOTAL 0.6 MG/DL (0.3-1.2); BLOOD UREA NITROGEN 10 MG/DL (9-23); CALCIUM LEVEL 9.4 MG/DL (8.3-10.6); CARBON DIOXIDE LEVEL 24 MMOL/L (20-31); CHLORIDE LEVEL 106 MMOL/L (98-107); CREATININE FOR GFR 0.92 MG/DL (0.70-1.30); GLOMERULAR FILTRATION RATE > 60.0 (>49); GLUCOSE, FASTING 94 MG/DL (74-106); POTASSIUM SERUM 3.7 MMOL/L (3.5-5.1); SODIUM LEVEL 140 MMOL/L (136-145); TOTAL PROTEIN 7.3 G/DL (5.7-8.2)
[2024-10-23 11:35] LABS: FREE T4 1.09 NG/DL (0.89-1.76); THYROID STIMULATING HORMONE 1.078 uIU/ML (0.55-4.78)
[2024-10-23] MEDS ORDERED: HOME MED LIST COMPLETE! XX SCH (13:40)
[2024-10-23] MEDS ORDERED: MAALOX 30 ML SUSP *UDC PO PRN (14:05)
[2024-10-23] MEDS ORDERED: ACETAMINOPHEN 325 MG TAB PO PRN (14:05)
[2024-10-23] MEDS ORDERED: MOM 30ML SUSPENSION UDC PO PRN (14:05)
[2024-10-23 14:29] LABS: C REACTIVE PROTEIN QUANTITATIV 1.63 MG/DL (<1.0)
[2024-10-23 14:40] LABS: PROCALCITONIN 0.12 ng/ml
[2024-10-23 16:08] VITALS: BP 131/82; TEMP 97.7; O2SAT 94
[2024-10-23] MEDS ORDERED: MUCI1TAB16 PO (16:53)
[2024-10-23] MEDS ORDERED: POTA4.25 PO (16:53)
[2024-10-23] MEDS ORDERED: ZYRT10TA12 PO (16:53)
[2024-10-23] MEDS: OSELTAMIVIR PHOSPHATE 75 MG CAP PO ONE (16:55)
[2024-10-23] MEDS: TAMSULOSIN 0.4 MG CAP PO SCH (18:18)
[2024-10-23] MEDS ORDERED: IPRATROPIUM 0.5MG/ALBUTEROL 2.5MG INH SOL UD 3ML (DUONEB) NEB PRN (18:20)
[2024-10-23 18:43] VITALS: O2SAT 95
[2024-10-23] MEDS: PANTOPRAZOLE 40MG TAB (PROTONIX) PO SCH (18:50)
[2024-10-23 19:40] VITALS: BP 116/60; TEMP 97.3; O2SAT 95
[2024-10-23] MEDS: IPRATROPIUM 0.5MG/ALBUTEROL 2.5MG INH SOL UD 3ML (DUONEB) NEB SCH (19:55)
[2024-10-23] MEDS: guaiFENesin ER TABLET 600 MG TAB PO SCH (20:45)
[2024-10-23 20:46] VITALS: BP 127/59
[2024-10-23] MEDS ORDERED: OSELTAMIVIR PHOSPHATE 75 MG CAP PO SCH (21:00)
[2024-10-23] MEDS: RAMELTEON 8 MG TAB (ROZEREM) PO PRN (22:46)
[2024-10-24 00:12] VITALS: BP 118/58; TEMP 97.5; O2SAT 93
[2024-10-24 03:30] VITALS: BP 109/52; TEMP 97.7; O2SAT 94
[2024-10-24 05:23] LABS: HEMATOCRIT 42.1 % (42.0-52.0); MEAN CORPUSCULAR HEMOGLOBIN 30.8 pg (27.0-33.0); MEAN CORPUSCULAR HGB CONC 33.3 g/dl (32.0-36.5); MEAN CORPUSCULAR VOLUME 92.5 fl (80.0-96.0); PLATELET COUNT, AUTOMATED 215 10^3/uL (150-450); RED BLOOD COUNT 4.55 10^6/uL (4.30-6.10); WHITE BLOOD COUNT 6.7 10^3/uL (4.0-10.0)
[2024-10-24 05:45] LABS: ALBUMIN 3.5 G/DL (3.2-5.2); ALKALINE PHOSPHATASE 44 U/L (40-129); ALT/SGPT 94 U/L (7.0-40); AST/SGOT 63 U/L (<34); BILIRUBIN,TOTAL 0.4 MG/DL (0.3-1.2); BLOOD UREA NITROGEN 14 MG/DL (9-23); CALCIUM LEVEL 9.1 MG/DL (8.3-10.6); CARBON DIOXIDE LEVEL 24 MMOL/L (20-31); CHLORIDE LEVEL 103 MMOL/L (98-107); CREATININE FOR GFR 0.84 MG/DL (0.70-1.30); GLOMERULAR FILTRATION RATE > 60.0 (>49); GLUCOSE, FASTING 126 MG/DL (74-106); MAGNESIUM LEVEL 2.1 MG/DL (1.8-2.4); POTASSIUM SERUM 3.7 MMOL/L (3.5-5.1); SODIUM LEVEL 139 MMOL/L (136-145); TOTAL PROTEIN 6.8 G/DL (5.7-8.2)
[2024-10-24 08:32] VITALS: BP 109/53; TEMP 97.7; O2SAT 93
[2024-10-24] MEDS: ENOXAPARIN 40MG/0.4ML SYRINGE (J1650 PER 10MG) SC SCH (09:00)
[2024-10-24] MEDS ORDERED: TAMSULOSIN 0.4 MG CAP PO SCH (09:00)
[2024-10-24] MEDS: FUROSEMIDE 40 MG TAB PO SCH (09:40)
[2024-10-24] MEDS: hydroCHLOROthiazide 12.5 MG CAPSULE PO SCH (09:40)
[2024-10-24] MEDS: EZETIMIBE 10MG TABLET (ZETIA) PO SCH (09:41)
[2024-10-24] MEDS: OSELTAMIVIR PHOSPHATE 75 MG CAP PO SCH (09:46)
[2024-10-24] MEDS: NYSTATIN 100,000 UNITS/GM TOPICAL PWD 15GM TOP SCH (09:51)
[2024-10-24 12:26] VITALS: BP 105/54; TEMP 97.9; O2SAT 93
[2024-10-24] MEDS ORDERED: VENTAER INH (13:56)
[2024-10-24] MEDS ORDERED: OSEL75CA2 PO (13:56)
== END 2024-10-24 14:56 | disposition home or self-care (01) ==
LOC: M ED 09:02 → M ED INP 09:03 → M MSPAV 15:55
PROVIDERS: ADMIT Internal Medicine; ATTEND Student in an Organized Health Care Education/Training Program
DX: J09.X2 Influenza due to identified novel influenza A virus with other respiratory manifestations (principal); J96.01 Acute respiratory failure with hypoxia; J20.9 Acute bronchitis, unspecified; I11.9 Hypertensive heart disease without heart failure; E78.5 Hyperlipidemia, unspecified; I50.30 Unspecified diastolic (congestive) heart failure; G47.33 Obstructive sleep apnea (adult) (pediatric); E66.01 Morbid (severe) obesity due to excess calories; N40.0 Benign prostatic hyperplasia without lower urinary tract symptoms; R10.9 Unspecified abdominal pain
CPT/HCPCS: 36415; 71045; 80048; 80053; 80076; 82550; 82553; 82803; 82977; 83690; 83735; 83880; 84145; 84439; 84443; 84484; 85025; 85027; 85610; 85730; 86140; 87486; 87581; 87633; 87798; 93005; 93041; 94640; 94760; 96374; 99285; G0378; J2919

== ENCOUNTER → 2024-10-27 | Outpatient (CLI) | payer MEDICARE, OTHER, SELFPAY ==
[~2024-10-27] MED LIST changes: +MUCI1TAB16 PO; +OSEL75CA2 PO; +POTA4.25 PO; +VENTAER INH; +ZYRT10TA12 PO
== END ==
LOC: M RAD 16:11
PROVIDERS: ATTEND Internal Medicine Pulmonary Disease
DX: Z12.2 Encounter for screening for malignant neoplasm of respiratory organs (principal); Z87.891 Personal history of nicotine dependence

== ENCOUNTER → 2025-04-18 | Outpatient (CLI) | payer MEDICARE ==
[~2025-04-18] MED LIST changes: -EZET10TA21 PO; +EZET10TA57 PO; -FLOM0.4C39 PO; +TAMS-18 PO
== END ==
LOC: M PLAIMG 12:39
PROVIDERS: ATTEND Urology
DX: N20.0 Calculus of kidney (principal); N40.1 Benign prostatic hyperplasia with lower urinary tract symptoms

== ENCOUNTER → 2025-04-18 | Outpatient (CLI) | payer MEDICARE ==
[2025-04-18 13:01] LABS: ALT/SGPT 71.0 U/L (7.0-40); AST/SGOT 54.0 U/L (<34); CALCIUM LEVEL 9.5 MG/DL (8.3-10.6); CARBON DIOXIDE LEVEL 26.0 MMOL/L (20-31); CHLORIDE LEVEL 104.0 MMOL/L (98-107); CREATININE FOR GFR 1.03 MG/DL (0.70-1.30); GLOMERULAR FILTRATION RATE 80.6 (>49); POTASSIUM SERUM 4.0 MMOL/L (3.5-5.1); PROSTATIC SPECIFIC AG MONITOR 4.66 NG/ML (< 4.00); SODIUM LEVEL 141.0 MMOL/L (136-145)
== END ==
LOC: M WUC 08:42
PROVIDERS: ATTEND Urology
DX: N20.0 Calculus of kidney (principal)